=== PATIENT | female | born 1955 | race Caucasian/White ===

== ENCOUNTER 2019-03-16 06:26 | Emergency (ER) | payer OTHER ==
[2019-03-16] MEDS: DEXAMETHASONE 10 MG/ML 1 ML INJ IM (07:07)
[2019-03-16] MEDS: ALBUTEROL 0.083% (NEB) 2.5 MG/3 ML AMP NEB (07:34)
[2019-03-16] MEDS: IPRATROPIUM (NEB) 0.5 MG/2.5 ML AMP NEB (07:34)
== END 2019-03-16 08:28 | disposition home or self-care (01) ==
LOC: FTE 08:28
DX: J40 Bronchitis, not specified as acute or chronic (principal)
CPT/HCPCS: 71045; 94664; 96372; 99284-25